=== PATIENT | female | born 1945 | race Hispanic/Latino ===

== ENCOUNTER 2019-12-23 21:06 | Emergency (ER) | payer MEDICARE, OTHER ==
[~2019-12-23] VITALS: Ht 157.5 cm; Wt 147.4 kg
--- OUTSIDE RECORDS SUMMARY | 2019-12-23 21:09 | XMS REPORT ---
Author Author [facility] Address Unknown Phone Unavailable Care Team Providers Care Anesthesiology Tech Name Role Phone Unavailable Unavailable Problems This patient has no known problems. Allergies, Adverse Reactions, Alerts This patient has no known allergies or adverse reactions. Medications This patient has no known medications. Results Test Description Test Time Test Comments Text Results Atomic Results Result Comments Urine Culture 2019-03-03 09:08:45 No growth at 24 hours. No growth at 48 hours. XR Chest 1 View Frontal 2019-03-02 00:54:31 Patient: LOIS MARTIN Date/Time03/01/2019 22:53 CDTReason for ExamCHF (Congestive Heart Failure), knownReportEXAM: CHEST ONE VIEWINDICATION: Congestive heart failureCOMPARISON: June 10, 2009TECHNIQUE: AP view of the chest.FINDINGS:The cardiomediastinal silhouette is normal. There is minimal atelectasis in the right lung base. No pneumothorax or pleural effusion is identified. The osseous structures are unremarkable.IMPRESSION:Minimal atelectasis in the right lung base.LOCATION: R16 Final Dictated by: MD Allred Melanie CDictated DT/TM: 03/02/2019 0:54 amSigned by: MD Allred Melanie CSigned (Electronic Signature): 03/02/2019 0:54 am Urinalysis with Microscopic if indicated 2019-03-02 00:44:00 UA Color (test code=UA Color) STRAW Yellow UA Appear (test code=UA Appear) CLEAR Clear UA pH (test code=UA pH) 6.5 UA Spec Grav (test code=UA Spec Grav) 1.009 1.001-1.035 UA Glucose (test code=UA Glucose) NEG Negative UA Ketones (test code=UA Ketones) NEG Negative UA Blood (test code=UA Blood) NEG Negative UA Protein (test code=UA Protein) NEG Negative UA Bili (test code=UA Bili) NEG Negative UA Urobilinogen (test code=UA Urobilinogen) 0.2 mg/dL UA Nitrite (test code=UA Nitrite) NEG Negative UA Leuk Est (test code=UA Leuk Est) NEG Negative UA Micro Ind? (test code=UA Micro Ind?) Not Indicated Not Indicated Result created by rule [email or web address]_UA_MICRO_IND Pro B Natriuretic [id number] 00:09:37* Test Item Value Reference Range Comments NT-proBNP (test code=NT-proBNP) 87 pg/mL 0-124 Troponin [id number] 00:09:37* Test Item Value Reference Range Comments Troponin-T (test code=Troponin-T) 9.220 ng/L 0.000-14.000 The CV of the assay at 99th percentile for both male and female patient population is < 10%. A rise and fall in IMANI with at least one value above the 99th percentile with clinical evidence of myocardial ischemia would support a diagnosis of AMI. A delta of at least 20% is recommended to access acute changes in results above the 99th percentile in serial measurements. Stable IMANI levels (<20%) delta above the 99th percentile URL would support a diagnosis of chronic myocardial injury. Comprehensive Metabolic [id number] 00:09:36* Test Item Value Reference Range Comments Sodium Level (test code=Sodium Level) 139.0 mmol/L 135.0-145.0 Potassium Level (test code=Potassium Level) 4.4 mmol/L 3.5-5.1 Chloride Level (test code=Chloride Level) 100 mmol/L 98-105 CO2 (test code=CO2) 25 mmol/L 22-29 Anion Gap (test code=Anion Gap) 14 mmol/L 7-16 BUN (test code=BUN) 10.40 mg/dL 8.00-23.00 Creatinine Level (test code=Creatinine Level) 0.80 mg/dL 0.50-0.90 BUN/Creat Ratio (test code=BUN/Creat Ratio) 13 Glucose Level (test code=Glucose Level) 148 mg/dL 70-115 Calcium Level (test code=Calcium Level) 9.4 mg/dL 8.3-10.5 Alk Phos (test code=Alk Phos) 65 U/L 35-104 Bilirubin Total (test code=Bilirubin Total) 0.3 mg/dL 0.1-0.9 Albumin Level (test code=Albumin Level) 4.3 g/dL 3.5-5.2 Protein Total (test code=Protein Total) 6.8 g/dL 6.4-8.3 ALT (test code=ALT) 25 U/L 1-33 AST (test code=AST) 29 U/L 1-32 Specimen hemolyzed. Globulin (test code=Globulin) 2.5 g/dL 2.9-3.1 A/G Ratio (test code=A/G Ratio) 1.7 ratio eGFR AA (test code=eGFR AA) >60 mL/min/1.73 m2 eGFR (estimated Glomerular Filtration Rate) is an estimated value, calculated from the patient's serum creatinine using the MDRD equation. It is NOT the patient's actual GFR. The eGFR provides a more clinically useful measure of kidney disease than serum creatinine alone.This calculation takes sex and race into account, if the information is provided. If the race is not provided, and the patient is -Mexican, multiply by 1.212. If sex is not provided, and the patient is female, multiply by 0.742. Results for patients <18 years of age have not been validated by the MDRD study and should be interpreted with caution. eGFR Result Interpretation:eGFR > or=60 is in the Normal RangeeGFR < 60 may mean kidney diseaseeGFR < 15 may mean kidney failure Ranges recommended by the National Kidney Foundation, http://nkdep.nih.gov Comprehensive Metabolic [id number] 00:09:36* Test Item Value Reference Range Comments Sodium Level (test code=Sodium Level) 139.0 mmol/L 135.0-145.0 Potassium Level (test code=Potassium Level) 4.4 mmol/L 3.5-5.1 Chloride Level (test code=Chloride Level) 100 mmol/L 98-105 CO2 (test code=CO2) 25 mmol/L 22-29 Anion Gap (test code=Anion Gap) 14 mmol/L 7-16 BUN (test code=BUN) 10.40 mg/dL 8.00-23.00 Creatinine Level (test code=Creatinine Level) 0.80 mg/dL 0.50-0.90 BUN/Creat Ratio (test code=BUN/Creat Ratio) 13 Glucose Level (test code=Glucose Level) 148 mg/dL 70-115 Calcium Level (test code=Calcium Level) 9.4 mg/dL 8.3-10.5 Alk Phos (test code=Alk Phos) 65 U/L 35-104 Bilirubin Total (test code=Bilirubin Total) 0.3 mg/dL 0.1-0.9 Albumin Level (test code=Albumin Level) 4.3 g/dL 3.5-5.2 Protein Total (test code=Protein Total) 6.8 g/dL 6.4-8.3 ALT (test code=ALT) 25 U/L 1-33 AST (test code=AST) 29 U/L 1-32 Specimen hemolyzed. Globulin (test code=Globulin) 2.5 g/dL 2.9-3.1 A/G Ratio (test code=A/G Ratio) 1.7 ratio eGFR AA (test code=eGFR AA) >60 mL/min/1.73 m2 eGFR (estimated Glomerular Filtration Rate) is an estimated value, calculated from the patient's serum creatinine using the MDRD equation. It is NOT the patient's actual GFR. The eGFR provides a more clinically useful measure of kidney disease than serum creatinine alone.This calculation takes sex and race into account, if the information is provided. If the race is not provided, and the patient is -Mexican, multiply by 1.212. If sex is not provided, and the patient is female, multiply by 0.742. Results for patients <18 years of age have not been validated by the MDRD study and should be interpreted with caution. eGFR Result Interpretation:eGFR > or=60 is in the Normal RangeeGFR < 60 may mean kidney diseaseeGFR < 15 may mean kidney failure Ranges recommended by the National Kidney Foundation, http://nkdep.nih.gov Creatine [id number] 00:09:36* Test Item Value Reference Range Comments CK (test code=CK) 196 U/L 26-192 Comprehensive Metabolic [id number] 00:09:36* Test Item Value Reference Range Comments Sodium Level (test code=Sodium Level) 139.0 mmol/L 135.0-145.0 Potassium Level (test code=Potassium Level) 4.4 mmol/L 3.5-5.1 Chloride Level (test code=Chloride Level) 100 mmol/L 98-105 CO2 (test code=CO2) 25 mmol/L 22-29 Anion Gap (test code=Anion Gap) 14 mmol/L 7-16 BUN (test code=BUN) 10.40 mg/dL 8.00-23.00 Creatinine Level (test code=Creatinine Level) 0.80 mg/dL 0.50-0.90 BUN/Creat Ratio (test code=BUN/Creat Ratio) 13 Glucose Level (test code=Glucose Level) 148 mg/dL 70-115 Calcium Level (test code=Calcium Level) 9.4 mg/dL 8.3-10.5 Alk Phos (test code=Alk Phos) 65 U/L 35-104 Bilirubin Total (test code=Bilirubin Total) 0.3 mg/dL 0.1-0.9 Albumin Level (test code=Albumin Level) 4.3 g/dL 3.5-5.2 Protein Total (test code=Protein Total) 6.8 g/dL 6.4-8.3 ALT (test code=ALT) 25 U/L 1-33 AST (test code=AST) 29 U/L 1-32 Specimen hemolyzed. Globulin (test code=Globulin) 2.5 g/dL 2.9-3.1 A/G Ratio (test code=A/G Ratio) 1.7 ratio eGFR AA (test code=eGFR AA) >60 mL/min/1.73 m2 eGFR (estimated Glomerular Filtration Rate) is an estimated value, calculated from the patient's serum creatinine using the MDRD equation. It is NOT the patient's actual GFR. The eGFR provides a more clinically useful measure of kidney disease than serum creatinine alone.This calculation takes sex and race into account, if the information is provided. If the race is not provided, and the patient is -Mexican, multiply by 1.212. If sex is not provided, and the patient is female, multiply by 0.742. Results for patients <18 years of age have not been validated by the MDRD study and should be interpreted with caution. eGFR Result Interpretation:eGFR > or=60 is in the Normal RangeeGFR < 60 may mean kidney diseaseeGFR < 15 may mean kidney failure Ranges recommended by the National Kidney Foundation, http://nkdep.nih.gov eGFR Non-AA (test code=eGFR Non-AA) >60.00 mL/min/1.73 m2 eGFR (estimated Glomerular Filtration Rate) is an estimated value, calculated from the patient's serum creatinine using the MDRD equation. It is NOT the patient's actual GFR. The eGFR provides a more clinically useful measure of kidney disease than serum creatinine alone.This calculation takes sex and race into account, if the information is provided. If the race is not provided, and the patient is -Mexican, multiply by 1.212. If sex is not provided, and the patient is female, multiply by 0.742. Results for patients <18 years of age have not been validated by the MDRD study and should be interpreted with caution. eGFR Result Interpretation:eGFR > or=60 is in the Normal RangeeGFR < 60 may mean kidney diseaseeGFR < 15 may mean kidney failure Ranges recommended by the National Kidney Foundation, http://nkdep.nih.gov Partial Thromboplastin [id number] 00:04:15* Test Item Value Reference Range Comments Partial Thromboplastin Time (test code=Partial Thromboplastin Time) 31.00 seconds 24.39-37.25 Prothrombin Time and [id number] 00:04:14* Test Item Value Reference Range Comments Prothrombin Time (test code=Prothrombin Time) 11.2 seconds 9.8-13.4 INR (test code=INR) 1.0 ratio 0.6-1.2 Complete Blood Count with [id number] 23:49:46* Test Item Value Reference Range Comments WBC (test code=WBC) 8.2 x10 4.4-10.5 RBC (test code=RBC) 4.68 x10 3.75-5.20 Hgb (test code=Hgb) 14.3 g/dL 12.2-14.8 MCV (test code=MCV) 90.20 fL 80.00-100.00 Hct (test code=Hct) 42.2 % 36.5-44.4 MCHC (test code=MCHC) 33.90 g/dL 32.00-37.50 RDW CV (test code=RDW CV) 13.2 % 11.5-14.5 MCH (test code=MCH) 30.6 pg 27.0-32.5 Platelets (test code=Platelets) 228.0 x10 140.0-440.0 MPV (test code=MPV) 10.4 fL Slide Review (test code=Slide Review) Auto Auto Result created by [email or web address]_SLIDE_REV_AUTO nRBC (test code=nRBC) 0 NRBC Abs (test code=NRBC Abs) 0.00 x10 IPF (test code=IPF) 0 % Automated [id number] 23:49:46* Test Item Value Reference Range Comments Neutro Auto (test code=Neutro Auto) 74.0 % 36.0-70.0 Lymph Auto (test code=Lymph Auto) 18.5 % 12.0-44.0 [place] Auto (test code=[place] Auto) 6.8 % 0.0-11.0 Eos, Auto (test code=Eos, Auto) 0.0 % 0.0-7.0 Basophil Auto (test code=Basophil Auto) 0.2 % 0.0-2.0 Neutro Absolute (test code=Neutro Absolute) 6.1 x10 1.6-7.4 Lymph Absolute (test code=Lymph Absolute) 1.52 x10 .50-4.60 [place] Absolute (test code=[place] Absolute) .56 x10 .00-1.20 Eos Absolute (test code=Eos Absolute) 0.00 x10 0.00-0.74 Baso Absolute (test code=Baso Absolute) 0.02 x10 0.00-0.21 IG [id number] 23:49:46* Test Item Value Reference Range Comments IG (test code=IG) 0.5 % 0.0-5.0 IG Abs (test code=IG Abs) 0 x10
[2019-12-23] MEDS ORDERED: BACITRACIN ZINC 0.9GM TP ONE ×2 (21:33→22:00)
[2019-12-23] MEDS ORDERED: TETANUS/DIPHTHERIA TOX ADULT 0.5 ML SYR IM ONE (21:45)
[2019-12-23] MEDS ORDERED: AUGMENTIN 500-1 EACH PO (21:57)
[2019-12-23] MEDS ORDERED: TETANUS/DIPHTHERIA TOX ADULT 0.5 ML SYR ONE (22:00)
--- NOTE | 2019-12-23 23:00 | Diagnostic Imaging Report ---
X-ray left humerus 2 views HISTORY: Pain. Cut, rule out foreign body COMPARISON: None available. FINDINGS: Bones: No acute displaced fracture. Osseous alignment is within normal limits. Joints: The joint spaces are well-maintained. Degenerative changes in the shoulder and elbow. Soft tissues: The soft tissues appear unremarkable. IMPRESSION: No acute radiographic osseous abnormality. No radiopaque foreign body identified. Signed by: Porter Avila DO on 12/23/2019 10:56 PM
== END 2019-12-23 22:30 | disposition home or self-care (01) ==
LOC: FSED 21:06
DX: S41.132A Puncture wound without foreign body of left upper arm, initial encounter (principal); W45.0XXA Nail entering through skin, initial encounter; Y92.008 Other place in unspecified non-institutional (private) residence as the place of occurrence of the external cause; I10 Essential (primary) hypertension; E03.9 Hypothyroidism, unspecified; K21.9 Gastro-esophageal reflux disease without esophagitis
CPT/HCPCS: 90471; 90714; 99283

== ENCOUNTER 2021-08-19 20:39 | Emergency (ER) | payer MEDICARE, OTHER ==
[~2021-08-19] VITALS: Ht 157.5 cm; Wt 147.4 kg
[~2021-08-19 20:39] MED LIST: AUGMENTIN 500-1 EACH PO
[2021-08-19] MEDS ORDERED: ONDANSETRON HCL 4 MG ORAL DISINTEGRATING TAB PO ONE (21:00)
[2021-08-19] MEDS ORDERED: HYDROCODONE/APAP 5MG-325MG TAB PO ONE (21:00)
[2021-08-19] MEDS ORDERED: IBUPROFEN 200 MG TAB PO ONE (21:00)
[2021-08-19] MEDS ORDERED: ONDANSETRON ODT4 MG PO (21:08)
[2021-08-19] MEDS ORDERED: ACETAMINOPHEN-1 EAC4 PO (21:08)
[2021-08-19] MEDS ORDERED: NEURONTIN300 MG PO (21:08)
[2021-08-19] MEDS ORDERED: IBUPROFEN 600 MG TAB ONE (21:28)
[2021-08-19] MEDS ORDERED: HYDROCODONE/APAP 5MG-325MG TAB ONE (21:28)
[2021-08-19] MEDS ORDERED: ONDANSETRON HCL 4 MG ORAL DISINTEGRATING TAB ONE (21:28)
== END 2021-08-19 22:00 | disposition home or self-care (01) ==
LOC: FSED 20:42
DX: M79.651 Pain in right thigh (principal); G62.9 Polyneuropathy, unspecified; I10 Essential (primary) hypertension; E03.9 Hypothyroidism, unspecified; K21.9 Gastro-esophageal reflux disease without esophagitis
CPT/HCPCS: 99283; Q0162